=== PATIENT | male | born 1980 | race Caucasian/White ===

== ENCOUNTER → 2016-06-17 | Outpatient (CLI) | payer OTHER | LOC: OD 13:39 | PROVIDERS: ATTEND Family Medicine | DX: M79.672 Pain in left foot (principal); M54.16 Radiculopathy, lumbar region | CPT/HCPCS: 72110 ==

== ENCOUNTER 2016-07-08 09:22 | Emergency (ER) | payer OTHER ==
[2016-07-08] MEDS ORDERED: OXYCODONE-ACETAMINOPHEN 5-325 MG TABLET PO ONE ×2 (10:34→12:27)
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
[2016-07-08] MEDS ORDERED: PROMETHAZINE HCL 25 MG TABLET PO ONE (10:36)
[2016-07-08] MEDS ORDERED: CYCLOBENZAPRINE HCL 10 MG TABLET PO ONE (12:27)
[2016-07-08 12:49] VITALS: BP 144/89
== END 2016-07-08 12:51 | disposition home or self-care (01) ==
LOC: ER 09:22
DX: M79.605 Pain in left leg (principal); M25.552 Pain in left hip; M79.672 Pain in left foot; M25.512 Pain in left shoulder; M54.5 Low back pain; V89.0XXA Person injured in unspecified motor-vehicle accident, nontraffic, initial encounter
CPT/HCPCS: 99283

== ENCOUNTER 2016-10-09 17:35 | Emergency (ER) | payer OTHER ==
--- NOTE | 2016-10-09 18:33 | ER Document Report ---
ED Medical Screen (RME) - General Chief Complaint: Rectal Bleeding Stated Complaint: ABDOMINAL PAIN Time Seen by Provider: 10/09/16 18:26 Notes: 35-year-old male patient reports left lower quadrant abdominal pain for about 3 days. He had a bowel movement that was followed by blood with clots. No fever, no nausea or vomiting. I have greeted and performed a rapid initial assessment of this patient. A comprehensive ED assessment and evaluation of the patient, analysis of test results and completion of the medical decision making process will be conducted by additional ED providers. TRAVEL OUTSIDE OF THE [place] IN LAST 30 DAYS: No - Related Data Allergies/Adverse Reactions: topiramate [From Topamax] Allergy (Unknown, Verified 10/09/16 17:51) Past Medical History - Past Medical History Cardiac Medical History: Reports: Hx Hypercholesterolemia, Hx Hypertension Neurological Medical History: Reports: Hx Cerebrovascular Accident - TIA Renal/ Medical History: Denies: Hx Peritoneal Dialysis Musculoskeltal Medical History: Reports Hx Arthritis, Reports Hx Musculoskeletal Deformity, Reports Hx Musculoskeletal Trauma Psychiatric Medical History: Reports: Hx Anxiety, Hx Attention Deficit Hyperactivity Disorder Past Surgical History: Reports: Hx Orthopedic Surgery - Left knee - Immunizations Hx Diphtheria, Pertussis, Tetanus Vaccination: Yes Physical Exam - Vital signs Vitals: Temp Pulse Resp BP Pulse Ox 98.0 F 98 18 132/73 H 99 10/09/16 17:51 10/09/16 17:51 10/09/16 17:51 10/09/16 17:51 10/09/16 17:51 Course - Vital Signs Vital signs: Temp Pulse Resp BP Pulse Ox 98.0 F 98 18 132/73 H 99 10/09/16 17:51 10/09/16 17:51 10/09/16 17:51 10/09/16 17:51 10/09/16 17:51
[2016-10-09 19:11] LABS: ABSOLUTE EOSINOPHILS # (AUTO) 0.2 10^3/uL (0.0-0.6); ABSOLUTE LYMPHOCYTES (AUTO) 1.8 10^3/uL (0.5-4.7); ABSOLUTE MONOCYTES (AUTO) 0.6 10^3/uL (0.1-1.4); ABSOLUTE NEUT (AUTO) 5.1 10^3/uL (1.7-8.2); BASOPHILS % (AUTO) 0.4 % (0-2); EOSINOPHILS % (AUTO) 3.1 % (0-6); HEMOGLOBIN 15.8 g/dL (13.5-17.0); HGB HCT DIFFERENCE 0.4; LYMPHOCYTES % (AUTO) 23.5 % (13-45); MEAN CORPUSCULAR HEMOGLOBIN 28.9 pg (27.0-33.4); MEAN CORPUSCULAR HGB CONC 33.7 g/dL (32.0-36.0); MEAN CORPUSCULAR VOLUME 86 fl (80-97); MONOCYTES % (AUTO) 7.8 % (3-13); RED BLOOD COUNT 5.47 10^6/uL (4.35-5.55); RED CELL DISTRIBUTION WIDTH 12.8 % (11.5-14.0); SEGMENTED NEUTROPHILS % (AUTO) 65.2 % (42-78); WHITE BLOOD COUNT 7.8 10^3/uL (4.0-10.5)
[2016-10-09 19:26] LABS: ALANINE AMINOTRANSFERASE 45 U/L (21-72); ALBUMIN 4.7 g/dL (3.5-5.0); ALKALINE PHOSPHATASE 61 U/L (38-126); ANION GAP 11 (5-19); ASPARTATE AMINO TRANSFERASE 20 U/L (17-59); BILIRUBIN,DIRECT 0.3 mg/dL (0.0-0.4); BILIRUBIN,TOTAL 0.7 mg/dL (0.2-1.3); BLOOD UREA NITROGEN 13 mg/dL (7-20); CALCIUM 9.8 mg/dL (8.4-10.2); CARBON DIOXIDE 28 mmol/L (22-30); CHLORIDE 102 mmol/L (98-107); CREATININE RESULT 0.92 mg/dL (0.52-1.25); GLUCOSE 100 mg/dL (75-110); POTASSIUM 4.8 mmol/L (3.6-5.0); TOTAL PROTEIN 7.6 g/dL (6.3-8.2)
[2016-10-09 20:41] LABS: APPEARANCE,URINE SLIGHTLY-CLOUDY; BILIRUBIN,URINE NEGATIVE (NEGATIVE); GLUCOSE, URINE NEGATIVE (NEGATIVE); KETONES,URINE NEGATIVE (NEGATIVE); LEUKOCYTE ESTERASE,URINE NEGATIVE (NEGATIVE); NITRITE,URINE NEGATIVE (NEGATIVE); PROTEIN,URINE 30 mg/dL (NEGATIVE); URINE SPECIFIC GRAVITY 1.029; UROBILINOGEN,URINE NEGATIVE mg/dL (<2.0)
[2016-10-09] MEDS ORDERED: HYDROMORPHONE HCL INJ/PF 2 MG/ML AMPULE IV ONE (21:13)
--- NOTE | 2016-10-09 22:00 | ER Document Report ---
ED General - General Mode of Arrival: Ambulatory Information source: Patient TRAVEL OUTSIDE OF THE [place] IN LAST 30 DAYS: No - HPI Onset: Other - Refer to HPI <GUNNAR DOYLE - Last Filed: 10/09/16 22:53> <DEB NICHOLSON - Last Filed: 10/10/16 00:59> - General Chief Complaint: Rectal Bleeding Stated Complaint: ABDOMINAL PAIN Time Seen by Provider: 10/09/16 18:26 Notes: Patient is a 35 year old male presenting to the ED for back pain, abdominal pain , and rectal bleeding. Patient states for 5-6 days he has had pain in his left back and for 2-3 days he now has pain in his abdomen. Patient states the pain is to an area the size of a quarter and it shoots straight through his back to his abdomen and does not radiate around the side. Patient had an episode of rectal bleeding with bright red blood on the paper and some blood with his stool. Patient then had 2 episodes of diarrhea since then with no rectal bleeding. Patient has also had a recent weight loss of 37 lbs over the last 2 months due to positive diet change and portion control; patient states he has cut back on his intake of soda and has increased the amount of water he has been drinking. Patient also complains of some dizziness at the time of exam along with chills and nausea. (GUNNAR DOYLE) - Related Data Allergies/Adverse Reactions: topiramate [From Topamax] Allergy (Unknown, Verified 10/09/16 17:51) Past Medical History - General Information source: Patient, Relative - spouse - Social History Smoking Status: Former Smoker Cigarette use (# per day): No Chew tobacco use (# tins/day): No Frequency of alcohol use: None Drug Abuse: None Family History: CVA, DM, Hypertension, Malignancy Patient has suicidal ideation: No Patient has homicidal ideation: No - Past Medical History Cardiac Medical History: Reports: Hx Hypercholesterolemia, Hx Hypertension Neurological Medical History: Reports: Hx Cerebrovascular Accident - TIA Musculoskeltal Medical History: Reports Hx Arthritis, Reports Hx Musculoskeletal Deformity, Reports Hx Musculoskeletal Trauma Psychiatric Medical History: Reports: Hx Anxiety, Hx Attention Deficit Hyperactivity Disorder Past Surgical History: Reports: Hx Orthopedic Surgery - Left knee - Immunizations Hx Diphtheria, Pertussis, Tetanus Vaccination: Yes <GUNNAR DOYLE - Last Filed: 10/09/16 22:53> Review of Systems - Review of Systems Constitutional: No symptoms reported EENT: No symptoms reported Cardiovascular: See HPI, Dizziness Respiratory: No symptoms reported Gastrointestinal: See HPI, Abdominal pain, Diarrhea, Nausea, Rectal bleeding Genitourinary: No symptoms reported Male Genitourinary: No symptoms reported Musculoskeletal: See HPI, Back pain Skin: No symptoms reported Hematologic/Lymphatic: No symptoms reported Neurological/Psychological: No symptoms reported -: Yes All other systems reviewed and negative <GUNNAR DOYLE - Last Filed: 10/09/16 22:53> Physical Exam <GUNNAR DOYLE - Last Filed: 10/09/16 22:53> <DEB NICHOLSON - Last Filed: 10/10/16 00:59> - Vital signs Vitals: Temp Pulse Resp BP Pulse Ox 98.0 F 98 18 132/73 H 99 10/09/16 17:51 10/09/16 17:51 10/09/16 17:51 10/09/16 17:51 10/09/16 17:51 - Notes Notes: GENERAL: Alert, interacts well, obese. No acute distress. HEAD: Normocephalic, atraumatic. EYES: Pupils equal, round, and reactive to light. Extraocular movements intact. ENT: Oral mucosa moist, tongue midline. NECK: Full range of motion. Supple. Trachea midline. LUNGS: Clear to auscultation bilaterally, no wheezes, rales, or rhonchi. No respiratory distress. HEART: Regular rate and rhythm. No murmurs, gallops, or rubs. ABDOMEN: Soft, left lower quadrant tenderness to palpation, no guarding rebound or rigidity. Left side of abdomen is more firm than the right side. Non- distended. Bowel sounds present in all 4 quadrants. BACK: Minimal pinpoint tenderness to palpation to the left of the spine in the lumbar region near L5, no ecchymosis or sign of trauma. RECTAL: No blood, minimal soft brown stool, good rectal tone. Rectal exam was supervised by Paulette Cavanaugh RN. EXTREMITIES: Moves all 4 extremities spontaneously. No edema, radial and dorsalis pedis pulses 2/4 bilaterally. No cyanosis. NEUROLOGICAL: Alert and oriented x3. Normal speech. PSYCH: Normal affect, normal mood. SKIN: Warm, dry, normal turgor. No rashes or lesions noted. (GUNNAR DOYLE) Course - Laboratory Result Diagrams: 10/09/16 18:55 10/09/16 18:55 <GUNNAR DOYLE - Last Filed: 10/09/16 22:53> - Laboratory Result Diagrams: 10/09/16 18:55 10/09/16 18:55 <DEB NICHOLSON - Last Filed: 10/10/16 00:59> - Re-evaluation Re-evalutation: 10/10/16 00:26 CBC unremarkable, unremarkable, urinalysis unremarkable, stool occult blood is positive, no gross blood on rectal exam. Patient is not hypotensive, no longer has active bleeding, will be discharged to home, recommended to have colonoscopy as an outpatient. (DEB NICHOLSON) - Vital Signs Vital signs: Temp Pulse Resp BP Pulse Ox 97.3 F 84 19 138/79 H 98 10/10/16 00:23 10/10/16 00:23 10/10/16 00:23 10/10/16 00:23 10/10/16 00:23 - Laboratory Laboratory results interpreted by me: 10/09/16 20:26 Urine Protein 30 H Urine Ascorbic Acid 40 H Discharge <GUNNAR DOYLE - Last Filed: 10/09/16 22:53> <DEB NICHOLSON - Last Filed: 10/10/16 00:59> - Discharge Clinical Impression: Left lower quadrant abdominal pain of unknown etiology, Rectal bleeding Condition: Stable Disposition: HOME, SELF-CARE Additional Instructions: Your CAT scan did not show any signs of infection. You do have blood in your stool. It is important that you follow-up as an outpatient to have either GI or a surgeon do a colonoscopy to make sure that you do not have a mass or cancer causing your bleeding. Referrals: LAZARO LARIOS MD [ACTIVE STAFF] - Follow up as needed ARYAN CORBETT MD [ACTIVE STAFF] - Follow up as needed Scribe Attestation: 10/10/16 00:59 I personally performed the services described in the documentation, reviewed and edited the documentation which was dictated to the scribe in my presence, and it accurately records my words and actions. (DEB NICHOLSON) Scribe Documentation - Scribe Written by Scribe:: Tu Calvillo 10/09/16 22:08 acting as scribe for :: Delvis <GUNNAR DOYLE - Last Filed: 10/09/16 22:53>
--- NOTE | 2016-10-09 23:20 | RADIOLOGY REPORT (SQ) ---
EXAM DESCRIPTION: CT ABD/PELVIS WITH IV ONLY COMPLETED DATE/TIME: 10/09/2016 10:49 pm REASON FOR STUDY: LLQ pain, rectal bleeding COMPARISON: None. TECHNIQUE: CT scan of the abdomen and pelvis performed using helical scanning technique with dynamic intravenous contrast injection. No oral contrast. Images reviewed with lung, soft tissue, and bone windows. Reconstructed coronal and sagittal MPR images reviewed. Delayed images for evaluation of the urinary system also acquired. All images stored on PACS. All CT scanners at this facility use dose modulation, iterative reconstruction, and/or weight based d osing when appropriate to reduce radiation dose to as low as reasonably achievable (ALARA). [facility]: Dose Right [facility]: CareDose [facility]: Dose Right [facility]: Teradose 4D [facility]: [employer] CONTRAST TYPE AND DOSE: 100 mL Isovue 370- low osmolar. RENAL FUNCTION: GFR > 60. RADIATION DOSE: 42.28mGy. LIMITATIONS: None. FINDINGS: LOWER CHEST: No significant findings. No nodules or infiltrates. LIVER: Normal size. No masses or dilated ducts. SPLEEN: Normal size. No focal lesions. PANCREAS: No masses. No significant calcifications. No adjacent inflammation or peripancreatic fluid collections. Pancreatic duct not dilated. GALLBLADDER: No identified stones by CT criteria. No inflammatory changes to suggest cholecystitis. ADRENAL GLANDS: No significant masses or asymmetry. RIGHT KIDNEY AND URETER: No solid masses. No significant calcifications. No hydronephrosis or hyd roureter. LEFT KIDNEY AND URETER: No solid masses. No significant calcifications. No hydronephrosis or hydr oureter. AORTA AND VESSELS: No aneurysm. No dissection. Renal arteries, SMA, celiac without stenosis. RETROPERITONEUM: No retroperitoneal adenopathy, hemorrhage or masses. BOWEL AND PERITONEAL CAVITY: No masses or inflammatory changes. No free fluid or peritoneal masses. APPENDIX: Normal. PELVIS: No mass or free fluid. Normal bladder. ABDOMINAL WALL: No masses. No hernias. BONES: No significant or acute findings. OTHER: No other significant finding. IMPRESSION: NO ACUTE FINDING IN THE ABDOMEN OR PELVIS ON CT SCAN WITH IV CONTRAST. TECHNICAL DOCUMENTATION: JOB ID: [id number] Quality ID # [id number]: Final reports with documentation of one or more dose reduction techniques (e.g., Au tomated exposure control, adjustment of the mA and/or kV according to patient size, use of iterative reconstruction technique) 2010 [employer]- All Rights Reserved
[2016-10-09] MEDS ORDERED: TRAMADOL HCL 50 MG TABLET PO ONE (23:56)
[2016-10-10 01:07] VITALS: BP 126/70
== END 2016-10-10 01:04 | disposition home or self-care (01) ==
LOC: ER 17:35
DX: K62.5 Hemorrhage of anus and rectum (principal); R10.32 Left lower quadrant pain; R10.9 Unspecified abdominal pain; M54.9 Dorsalgia, unspecified; R63.4 Abnormal weight loss; R42 Dizziness and giddiness; Z87.891 Personal history of nicotine dependence
CPT/HCPCS: 99284; 96374; 36415; 85025; 82272; 80053; 81001; 74177; J1170

== ENCOUNTER 2018-10-24 08:57 | Emergency (ER) | payer OTHER ==
[2018-10-24 09:17] VITALS: BP 117/73
[2018-10-24] MEDS ORDERED: MORPHINE SULFATE 10 MG/ML INJ IV ONE (09:45)
[2018-10-24] MEDS ORDERED: KETOROLAC TROMETHAMINE INJ/PF 30 MG/1 ML SDV IV ONE (09:45)
[2018-10-24] MEDS ORDERED: NORMAL SALINE 1000 ML 1,000 ML IV ONE ×2 (09:45→14:34)
[2018-10-24] MEDS ORDERED: ONDANSETRON HCL INJ/PF 4 MG/2 ML SDV IV ONE ×2 (09:45→15:50)
--- NOTE | 2018-10-24 09:47 | ER Document Report ---
ED Medical Screen (RME) - General Chief Complaint: Abdominal Pain Stated Complaint: ABDOMINAL PAIN Time Seen by Provider: 10/24/18 09:42 TRAVEL OUTSIDE OF THE [place] IN LAST 30 DAYS: No - HPI Notes: 10/24/18 09:46 Patient is a 37-year-old male with a history of hypertension who presents complaining of significant right upper quadrant abdominal pain that began about 3 hours ago with associated nausea and vomiting. Patient states that the pain does not radiate. He has not been able to eat or drink because of the pain. He is urinating normally and having normal bowel movements. No surgical history to his abdomen. Denies ARROYO, fever, neck pain, URI, CP, SOB, dysuria, back pain, or rash. I have treated and performed a rapid initial assessment of this patient. A comprehensive ED assessment and evaluation of the patient, analysis of test results and completion of medical decision making process will be conducted by additional ED providers. PHYSICAL EXAMINATION: GENERAL: Well-appearing, well-nourished and in no acute distress. A&Ox4. Answers questions appropriately. LUNGS: Breath sounds clear to auscultation bilaterally and equal. No wheezes rales or rhonchi. HEART: Regular rate and rhythm without murmurs, rubs, gallops. ABDOMEN: Soft, nondistended abdomen. No guarding, no rebound. Normal bowel sounds present. No CVA tenderness bilaterally. + RUQ tenderness (cannot elicit thorough abd exam w/o bed, however). - Related Data Allergies/Adverse Reactions: topiramate [From Topamax] Allergy (Unknown, Verified 10/24/18 09:00) Past Medical History - Social History Frequency of alcohol use: None Drug Abuse: None - Past Medical History Cardiac Medical History: Reports: Hx Hypercholesterolemia, Hx Hypertension Neurological Medical History: Reports: Hx Cerebrovascular Accident - TIA Renal/ Medical History: Denies: Hx Peritoneal Dialysis Musculoskeltal Medical History: Reports Hx Arthritis, Reports Hx Musculoskeletal Deformity, Reports Hx Musculoskeletal Trauma Psychiatric Medical History: Reports: Hx Anxiety, Hx Attention Deficit Hyperactivity Disorder Past Surgical History: Reports: Hx Orthopedic Surgery - Left knee - Immunizations Hx Diphtheria, Pertussis, Tetanus Vaccination: Yes Physical Exam - Vital signs Vitals: Temp Pulse Resp BP Pulse Ox 100.0 F 98 18 117/73 97 10/24/18 09:10 10/24/18 09:10 10/24/18 09:10 10/24/18 09:10 10/24/18 09:10 Course - Vital Signs Vital signs: Temp Pulse Resp BP Pulse Ox 100.0 F 98 18 117/73 97 10/24/18 09:10 10/24/18 09:10 10/24/18 09:10 10/24/18 09:10 10/24/18 09:10
[2018-10-24 10:33] LABS: ABSOLUTE BASOPHILS # (AUTO) 0.1 10^3/uL (0.0-0.2); ABSOLUTE EOSINOPHILS # (AUTO) 0.2 10^3/uL (0.0-0.6); ABSOLUTE LYMPHOCYTES (AUTO) 0.7 10^3/uL (0.5-4.7); ABSOLUTE MONOCYTES (AUTO) 0.8 10^3/uL (0.1-1.4); ABSOLUTE NEUT (AUTO) 7.9 10^3/uL (1.7-8.2); BASOPHILS % (AUTO) 0.8 % (0-2); EOSINOPHILS % (AUTO) 1.7 % (0-6); HEMATOCRIT 42.1 % (37.9-51.0); HEMOGLOBIN 14.6 g/dL (13.5-17.0); LYMPHOCYTES % (AUTO) 7.3 % (13-45); MEAN CORPUSCULAR HEMOGLOBIN 29.5 pg (27.0-33.4); MEAN CORPUSCULAR HGB CONC 34.8 g/dL (32.0-36.0); MEAN CORPUSCULAR VOLUME 85 fl (80-97); MONOCYTES % (AUTO) 8.6 % (3-13); PLATELET COUNT 174 10^3/uL (150-450); RED BLOOD COUNT 4.95 10^6/uL (4.35-5.55); SEGMENTED NEUTROPHILS % (AUTO) 81.6 % (42-78); TOTAL CELLS COUNTED % (AUTO) 100 %; WHITE BLOOD COUNT 9.7 10^3/uL (4.0-10.5)
[2018-10-24 11:06] LABS: ALANINE AMINOTRANSFERASE 42 U/L (21-72); ALBUMIN 4.5 g/dL (3.5-5.0); ALKALINE PHOSPHATASE 68 U/L (38-126); ANION GAP 7 (5-19); ASPARTATE AMINO TRANSFERASE 34 U/L (17-59); BILIRUBIN,DIRECT 0.4 mg/dL (0.0-0.4); BILIRUBIN,TOTAL 0.9 mg/dL (0.2-1.3); BLOOD UREA NITROGEN 15 mg/dL (7-20); CALCIUM 9.1 mg/dL (8.4-10.2); CARBON DIOXIDE 27 mmol/L (22-30); CHLORIDE 102 mmol/L (98-107); GLUCOSE 99 mg/dL (75-110); LIPASE 53.9 U/L (23-300); POTASSIUM 4.8 mmol/L (3.6-5.0); SODIUM 136.1 mmol/L (137-145); TOTAL PROTEIN 7.2 g/dL (6.3-8.2)
--- NOTE | 2018-10-24 12:34 | RADIOLOGY REPORT (SQ) ---
EXAM DESCRIPTION: U/S ABDOMEN LIMITED W/O DOP COMPLETED DATE/TIME: 10/24/2018 12:24 pm REASON FOR STUDY: RUQ pain, n/v COMPARISON: None. TECHNIQUE: Dynamic and static grayscale images acquired of the abdomen and recorded on PACS. Additio nal selected color Doppler and spectral images recorded. LIMITATIONS: None. FINDINGS: PANCREAS: Nonvisualized. LIVER: No masses. Echotexture normal. LIVER VASCULATURE: Normal directional flow of the main portal vein and hepatic veins. GALLBLADDER: No stones. Normal wall thickness. No pericholecystic fluid. ULTRASOUND-DETECTED BERNARD'S SIGN: Negative. INTRAHEPATIC DUCTS AND COMMON DUCT: CBD and intrahepatic ducts normal caliber. No filling defects. INFERIOR VENA CAVA: Normal flow. AORTA: No aneurysm. RIGHT KIDNEY: Normal size. Normal echogenicity. No solid or suspicious masses. No hydronephrosis. No calcifications. PERITONEAL AND RIGHT PLEURAL SPACE: No ascites or effusions. OTHER: No other significant findings. IMPRESSION: No ultrasound abnormality of the right upper quadrant to explain abdominal pain. Consid er CT or MRI to further evaluate unexplained abdominal pain. TECHNICAL DOCUMENTATION: JOB ID: [id number] [employer]- All Rights Reserved Reading location - IP/workstation name: [email or web address]
[2018-10-24 16:26] LABS: APPEARANCE,URINE SLIGHTLY-CLOUDY; BILIRUBIN,URINE NEGATIVE (NEGATIVE); GLUCOSE, URINE NEGATIVE (NEGATIVE); KETONES,URINE NEGATIVE (NEGATIVE); LEUKOCYTE ESTERASE,URINE NEGATIVE (NEGATIVE); NITRITE,URINE NEGATIVE (NEGATIVE); PROTEIN,URINE NEGATIVE (NEGATIVE); URINE SPECIFIC GRAVITY 1.028; UROBILINOGEN,URINE NEGATIVE mg/dL (<2.0)
[2018-10-24 16:27] LABS: COLOR,URINE YELLOW
[2018-10-24] MEDS ORDERED: ONDANSETRON ODT 4 MG TAB (6 TAB/ER DISP) PO PRN (16:37)
--- NOTE | 2018-10-24 16:43 | ER Document Report ---
ED General - General Chief Complaint: Abdominal Pain Stated Complaint: ABDOMINAL PAIN Time Seen by Provider: 10/24/18 09:42 Primary Care Provider: KARIME MILLS MD [Primary Care Provider] - Follow up as needed TRAVEL OUTSIDE OF THE [place] IN LAST 30 DAYS: No - HPI Notes: Patient is a 37-year-old male who presents the emergency department for evaluation of abdominal pain, nausea, vomiting. He states he woke this morning with sharp and stabbing right upper quadrant pain. He had multiple episodes of nonbloody, nonbilious emesis. He denies any eunice fevers or chills, but states his temperature was 100.0 F here. He does have chronic constipation issues. He is currently on Movantik for his once patient issues associated with narcotics. He is currently under pain management contract. No dysuria, hematuria, urinary frequency. - Related Data Allergies/Adverse Reactions: topiramate [From Topamax] Allergy (Unknown, Verified 10/24/18 09:00) Past Medical History - General Information source: Patient - Social History Smoking Status: Never Smoker Frequency of alcohol use: None Drug Abuse: None Family History: CVA, DM, Hypertension, Malignancy, Other - Gallstones Patient has suicidal ideation: No Patient has homicidal ideation: No - Past Medical History Cardiac Medical History: Reports: Hx Hypercholesterolemia, Hx Hypertension Renal/ Medical History: Denies: Hx Peritoneal Dialysis Musculoskeletal Medical History: Reports Hx Arthritis, Reports Hx Musculoskeletal Deformity, Reports Hx Musculoskeletal Trauma Psychiatric Medical History: Reports: Hx Anxiety, Hx Attention Deficit Hyperactivity Disorder Past Surgical History: Reports: Hx Orthopedic Surgery - Left knee - Immunizations Hx Diphtheria, Pertussis, Tetanus Vaccination: Yes Review of Systems - Review of Systems Constitutional: See HPI EENT: No symptoms reported Cardiovascular: No symptoms reported Respiratory: No symptoms reported Gastrointestinal: See HPI Genitourinary: No symptoms reported Musculoskeletal: No symptoms reported Skin: No symptoms reported Neurological/Psychological: No symptoms reported Physical Exam - Vital signs Vitals: Temp Pulse Resp BP Pulse Ox 100.0 F 98 18 117/73 97 10/24/18 09:10 10/24/18 09:10 10/24/18 09:10 10/24/18 09:10 10/24/18 09:10 - Notes Notes: Vital signs reviewed, please refer to chart. Head is normocephalic, atraumatic. Pupils equal round, reactive to light. Neck is supple without meningismus. Heart is regular rate and rhythm. Lungs are clear to auscultation bilaterally. Abdomen is soft, moderate right upper quadrant tenderness without rebound or guarding, normoactive bowel sounds throughout. Extremities without cyanosis, clubbing. Posterior calves are nontender. Peripheral pulses are equal. Skin is warm and dry. Patient is awake, alert, neurological exam is nonfocal. Course - Re-evaluation Re-evalutation: 10/24/18 16:40 Presents emergency department for evaluation of nausea, vomiting, right upper quadrant pain. He had ultrasound performed which is found to be unremarkable. He has no leukocytosis. At this point he is only had his symptoms for less than 10 hours. We did discuss the possibility of a retrocecal appendix, and presentation of appendicitis in this manner. He does not have significant pyuria. His serial abdominal exams are nonsurgical. I discussed my concerns and findings with the patient and his significant other. We decided to go ahead with discharge, if his pain persists in 12 hours he is to return to rule out appendicitis. Otherwise, we did talk about the possibility of biliary colic being the etiology of his pain. He had a buttery shrimp dinner last night. He is told to avoid fatty and greasy foods. He is to follow-up with primary care this week. We will send him home with antiemetics. He is to return to the ED with worsening or new concerning symptoms of any sort, or in 12 hours if his pain persists as discussed. - Vital Signs Vital signs: Temp Pulse Resp BP Pulse Ox 100.0 F 98 18 117/73 97 10/24/18 09:10 10/24/18 09:10 10/24/18 09:10 10/24/18 09:10 10/24/18 09:10 - Laboratory Result Diagrams: 10/24/18 10:21 10/24/18 10:21 Laboratory results interpreted by me: 10/24/18 10/24/18 10:21 10:21 Seg Neutrophils % 81.6 H Lymphocytes % 7.3 L Sodium 136.1 L - Diagnostic Test Radiology reviewed: Reports reviewed Radiology results interpreted by me: 10/24/18 16:41 Abdomen Ultrasound 10/24/18 09:45 IMPRESSION: No ultrasound abnormality of the right upper quadrant to explain abdominal pain. Consider CT or MRI to further evaluate unexplained abdominal pain. Discharge - Discharge Clinical Impression: Right upper quadrant abdominal pain Nausea and vomiting Qualifiers: Vomiting type: unspecified Vomiting Intractability: non-intractable Qualified Code(s): R11.2 - Nausea with vomiting, unspecified Condition: Stable Disposition: HOME, SELF-CARE Instructions: Abdominal Pain ([facility]), Antinausea Medication ([facility]), Gallbladder Disease ([facility]), Observation for Appendicitis ([facility]) Additional Instructions: There are multiple possible causes for your abdominal pain at this time. Rest, clear liquids. Avoid fatty and greasy foods. You may need further testing to evaluate for gallbladder dysfunction. There is also the possibility of an atypical location of your appendix. If your symptoms persist in 10 to 12 hours, you should return to the emergency department for CT scan of the abdomen and pelvis. Otherwise, follow-up with your primary care physician this week. Return to the ED with worsening or new concerning symptoms of any sort. Prescriptions: Ondansetron [Zofran Odt 4 mg Tablet] 1 tab PO Q4H PRN #15 tab.rapdis PRN Reason: For Nausea/Vomiting Forms: Return to Work Referrals: KARIME MILLS MD [Primary Care Provider] - Follow up as needed
== END 2018-10-24 17:06 | disposition home or self-care (01) ==
LOC: ER 08:57
DX: R10.11 Right upper quadrant pain (principal); R10.811 Right upper quadrant abdominal tenderness; R11.2 Nausea with vomiting, unspecified; K59.00 Constipation, unspecified; Z79.899 Other long term (current) drug therapy; I10 Essential (primary) hypertension
CPT/HCPCS: 96376; 99284; 96361; 96375; 36415; 83690; 85025; 80053; 81001; 76705; 96374; J1885; J2270; J2405; J7030